=== PATIENT | male | born 1940 ===

== ENCOUNTER 2021-12-04 01:59 | Outpatient (CLI) | payer MEDICARE, SELFPAY ==
--- OUTSIDE RECORDS SUMMARY | 2021-12-04 02:04 | XMS_ITS | Clinical Summary ---
:1940 Author Organization [facility] [place] [address] Care Team Providers Name Role Phone Taylor Hazel MD Primary Care Provider [phone] Allergies No known active allergies Medications No known medications Active Problems Problem Noted Date Spinal stenosis 07/18/2015 Left leg pain 07/18/2015 Social History Tobacco Use Types Packs/Day Years Used Date Former Smoker Sex Assigned at Date Recorded Not on file Last Filed Vital Signs Vital Sign Reading Time Taken Comments Blood Pressure 147/84 07/18/2015 3:42 PM EDT R ARM Pulse 68 07/18/2015 3:42 PM EDT Temperature - - Respiratory Rate 18 07/18/2015 3:42 PM EDT Oxygen Saturation - - Inhaled Oxygen Concentration - - Weight 83.9 kg (185 lb) 07/18/2015 3:42 PM EDT Height 172.7 cm (5' 8) 07/18/2015 3:42 PM EDT Body Mass Index 28.13 07/18/2015 3:42 PM EDT Plan of Treatment Health Maintenance Due Date Last Done Comments Covid-19 Vaccine (#1) 11/01/1945 Tdap adult 11/01/1958 Tetanus vaccine 11/01/1958 Zoster vaccine (1 of 2) 11/01/1989 Advance Directive 11/01/1994 Pneumoccocal Vaccine: 65+ (1 - PCV) 11/01/2004 Influenza (Flu) vaccine (1 of 1 - Influenza standard 11/19/2021 series) Insurance Payer Benefit Plan / Subscriber ID Effective Dates Phone Addre ss Type Group MEDICARE MEDICARE PART [id number] 2004-Quoc [phone] [facility] [place] [phone] [facility] [id number] 2015-Quoc [phone] [address] [facility] [address] [place] [address] Care Teams Packager Or Packer And Weigher Relationship Specialty Start Date End Date Taylor Hazel MD PCP - General Family Medicine 07/18/15
--- OUTSIDE RECORDS SUMMARY | 2021-12-04 02:04 | XMS_ITS | Clinical Summary ---
:1940 Author Organization [facility] Address [address] [place] [address] Care Team Providers Name Role Phone Taylor Hazel MD Primary Care Provider [phone] Allergies No known active allergies Medications Medication Sig Dispensed Refills Start Date End Date Status sertraline (ZOLOFT) 50 Take 50 mg by 0 Active mg tablet mouth daily. docosahexaenoic acid/epa Take by mouth 0 Active (FISH OIL ORAL) daily. MULTIVITAMIN ORAL Take by mouth 0 Active daily. IBUPROFEN ORAL Take by mouth 0 A ctive daily. erythromycin (ROMYCIN) 5 Apply small 1 Tube 1 06/03/2020 Active mg/gram (0.5 %) amount to outer ophthalmic ointment corner of both eyelids and 1/4 inch strip in the right eye 3 times daily for 1 week Additional Information Patient not taking. Reported on 07/18/2020 Active Problems No known active problems Surgical History Surgery Date Site/Laterality Comments CATARACT REMOVAL WITH IMPLANT Bilateral INTRAOCULAR LENS PROSTHESIS INSERTION Bilateral LASIK Bilateral CATARACT REMOVAL Bilateral Medical History Medical History Date Comments Other states following surgery of eye and adnexa bilateral cataract Family History Medical History Relation Name Comments Macular Degeneration Sister Blindness Neg Hx Cataract Neg Hx Glaucoma Neg Hx Keratoconus Neg Hx Retinal Detachment Neg Hx Retinitis Pigmentosa Neg Hx Relation Name Status Comments Sister Social History Tobacco Use Types Packs/Day Years Used Date Former Smoker Smokeless Tobacco: Never Used Alcohol Use Standard Drinks/Week Comments Yes 0 (1 standard drink = 0.6 oz pure alcoho l) Sex Assigned at Date Recorded Not on file Last Filed Vital Signs Vital Sign Reading Time Taken Comments Blood Pressure 189/92 06/03/2020 0930 EDT Pulse 58 06/03/2020 0930 EDT Temperature - - Respiratory Rate - - Oxygen Saturation 97% 06/03/2020 0930 EDT Inhaled Oxygen Concentration - - Weight - - Height - - Body Mass Index - - Plan of Treatment Health Maintenance Due Date Last Done Comments COVID-19 Vaccine (1) 11/01/1944 Fall Risk Screening 11/01/2004 Insurance Payer Benefit Plan Subscriber ID Effective Phone Address Typ e / Group Dates [facility] [id number] 2020-Pres [phone] [employer] MEDICARE [employer]-M[employer] ent [phone] [place] [address] [facility] [id number] 2020-Pres [phone] ed[address] MEDICARE HEALTH-MCR ent [phone] [place] [address] Roberto Tyler Personal/Family Self 1940 [address] (Home) [place] [address] Roberto Tyler Personal/Family Self 1940 [address]Home) [place] [address] Roberto Tyler Personal/Family Self 1940 [address]Home) [place] [address] Roberto Tyler Personal/Family Self 1940 [address]) [place] [address] Roberto Tyler Personal/Family Self 1940 [address] [place] [address] Roberto Tyler Personal/Family Self 1940 [address] (Home) [place] [address] Roberto Tyler Personal/Family Self 1940 [address]Home) [place] [address] Care Teams High Speed Printer Operator Relationship Specialty Start Date End Date Taylor Hazel MD PCP - General 02/19/[address],[place] [address]
--- OUTSIDE RECORDS SUMMARY | 2021-12-04 02:04 | XMS_ITS | Encounter Summary ---
:1940 Author Organization [facility] Address [address] [place] [address] Care Team Providers Name Role Phone Taylor Hazel MD Primary Care Provider [phone] Encounter Details Date Type Department Care Team Description 07/03/2021 Lab Requisition [facility] Ilir, Basal cell carcinoma Pathology & Taylor Solares MD of skin, unspecified Laboratory Medicine [address] [place] [address] Social History Tobacco Use Types Packs/Day Years Used Date Former Smoker Smokeless Tobacco: Never Used Alcohol Use Standard Drinks/Week Comments Yes 0 (1 standard drink = 0.6 oz pure alcoho l) Sex Assigned at Date Recorded Not on file documented as of this encounter Plan of Treatment Not on filedocumented as of this encounter Procedures Procedure Name Priority Date/Time Associated Diagnosis Comme nts SURGICAL PATHOLOGY Today 07/03/2021 9:15 EDT Basal cell carc inoma Results for this of skin, unspecified procedu re are in the results section. documented in this encounter Results SURGICAL PATHOLOGY (07/03/2021 9:15 EDT) Note to Patient The following [facility] pathology results CENTER have been interpreted LABORATORY by your pathologist SERVICES and may be available to you before your health provider has had the opportunity to review them. Please allow time for your provider to receive these results and explore management options, if applicable. Final Diagnosis A. SKIN OF ARM, RIGHT UPPER, EXCISION: [facility] - Epidermal reparative change and dermal scar, c onsistent with biopsy site. CENTER - No residual basal cell carcinoma identified. LABORATORY SERVICES Attestation By the signature [facility] Electronica lly below, the attending CENTER signed by Herbert, physician certifies LABORATORY Katty Allen MD on that they have 1) SERVICES 07/07/2021 at 1231 personally conducted a gross and/or microscopic examination of the described specimen(s), and/or personally interpreted the results of laboratory testing of the described specimen(s), and 2) personally rendered or confirmed the above diagnosis. Microscopic The epidermis shows [facility] Description reparative changes CENTER with effacement of LABORATORY the rete ridge SERVICES pattern. The underlying dermis has fibrosis with fibroblasts and collagen bundles oriented parallel to the epidermis. There is a reactive vascular pattern. Clinical History Basal cell carcinoma; [facility] clinical diagnosis CENTER code: C44.91 LABORATORY SERVICES Gross Description A. [facility] Received in formalin ewa d with proper patient identification (initials B, S) and right upper arm is an unoriented ellipse excision of pale briggs-white wrinkled skin (1.7 x 0.8 cm and is excised to a CENTER depth of 0.3 cm). There is an off center white prior biopsy site (0.8 x 0.4 by less than 0.1 cm). The margins are inked blue. The specimen is serially sectioned and entirely submitted as two tips, reverse en face in A1 and central sections in A2-A3. LABORATORY SERVICES Cam Mathias 07/06/2021 9:07 Performing Lab [facility] LABORATORY SERVICES Scanned Images [facility] LABORATORY SERVICES Specimen Tissue - Skin (tissue) specimen (specime n) Performing Organization Address City/State/ZIP Code Phon e Number [facility]OR[facility]ORY [address] [place] [address] SERVICES documented in this encounter Visit Diagnoses Diagnosis Basal cell carcinoma of skin, unspecifie d documented in this encounter Care Teams Rotary Veneer Machine Operator Relationship Specialty Start Date End Date Taylor Hazel MD PCP - General 02/19/[address],[place] [address] documented as of this encounter
--- OUTSIDE RECORDS SUMMARY | 2021-12-04 02:04 | XMS_ITS | Encounter Summary ---
:1940 [place] [address] Care Team Providers Name Role Phone Cas ADAMSON MD, Gigi Larson Primary Care Provider Encounter Details Date Type Department Care Team Description 07/08/2015 Orders Only Vascular Surgery at [facility], JUAQUIN Ross Left leg pain [address] [address] VASCULAR SURGERY [phone] [place] [phone] (Wo rk) Social History Tobacco Use Types Packs/Day Years Used Date Never Assessed Sex Assigned at Date Recorded Not on file documented as of this encounter Plan of Treatment Not on filedocumented as of this encounter Results SONYA, legs, multiple levels (07/18/2015 2:50 PM EDT) Component Value Ref Test Analysis Performed At [facility] Range Method Time Signature VB Text Department: Vascular Surgery Lab [facility] Report Patient: [id number] (LUIS TYLER) CPT: 24555 ICD10: M79.605 Referring Physician: NORIS GUZMAN ?? Indications: c/o left leg pain (random), pain is worse at re st; ? arterial disease Diabetes mellitus: No ICD10 Diagnosis Code: M79.605 Findings: Right ?Pressure (mm Hg) ?? SONYA ??Waveform ?? Brachial Artery ?161 ? Common Femoral Artery ?Triphasic ?? Pop Fossa ?Triphasic ?? Dorsalis Pedis (Ankle) Arter y ?173 ? 1.07 ??Triphasic ?? Posterior Tibial (Ankle) Artery ??177 ? 1.10 ??Triphasic ?? Left ? Pressure (mm Hg) ?? SONYA ??Waveform ?? Brachial Artery ?152 ? Common Femoral Artery ?Triphasic ?? Pop Fossa ?Triphasic ?? Dorsalis Pedis (Ankle) Arter y ?157 ? 0.98 ??Triphasic ?? Posterior Tibial (Ankle) Artery ??166 ? 1.03 ??Triphasic ?? Interpretation: RIGHT: No significant lower extremity arterial o cclusive disease identifiable at rest. Normal ankle/brachial pressure ratios and ankle D oppler waveforms. LEFT: No significant lower e xtremity arterial occlusive disease identifiable at rest. Normal ankle/brachial pressure ratios and ankle Dopple r waveforms. Comparison: ??No previous study in our vascular lab da tabase for comparison. Electronically Signed by: STEVE HAN on 2015-07-18 04:39 :59 PM VB Text End of Report [facility] Report Specimen (Source) Anatomical Collection Method Collection Time Re ceived Time Location / / Volume Laterality 07/18/2015 2:50 PM EDT Noris Guzman MD VASCULAR ORDERABLES Performing Organization Address City/State/ZIP Code Phon e Number [facility] documented in this encounter Visit Diagnoses Diagnosis Left leg pain Pain in limb documented in this encounter Care Teams Director Of In Service Education Relationship Specialty Start Date End Date Gigi Cardozo II, MD PCP - General 02/10/10 07/17/15 [address] [place] [address] documented as of this encounter
--- OUTSIDE RECORDS SUMMARY | 2021-12-04 02:04 | XMS_ITS | Encounter Summary ---
:1940 [place] [address] Care Team Providers Name Role Phone Taylor Hazel MD Primary Care Provider [phone] Reason for Visit Reason Comments Other My leg hurts Encounter Details Date Type Department Care Team Description 07/18/2015 Office Visit Vascular Surgery at [facility] Catalina Ferreira PA Left leg pain [address] [address] VASCULAR SURGERY [phone] [place], [place] [address] (Wo rk) Social History Tobacco Use Types Packs/Day Years Used Date Former Smoker Sex Assigned at Date Recorded Not on file documented as of this encounter Last Filed Vital Signs Vital Sign Reading [...] Mass Index 28.13 07/18/2015 3:42 PM EDT documented in this encounter Patient Instructions Patient InstructionsCatalina Ferreira PA - 07/18/2015 5:34 PM EDT There was no evidence of arterial disease on your exam or your SONYA testing today to account for yoursymptoms. I have recommended follow up with your PCP to review your MRI and consider reevaluation with your spinal surgeon. We can see you on an as needed basis. Please do not hesitate to call with questions/concerns. documented in this encounter Progress Notes Catalina Ferreira PA - 07/18/2015 5:27 PM EDT This is a new patient to the practice who is being evaluated for left leg pain and was referred by TAYLOR HAZEL MD. Mr. Tyler has a history of spinal stenosis and had a back surgery about a year and a half ago in [place] by Dr. Diaz. Since that time he has developed recurrent symptoms in his left leg that he feels are related to his back and nerves but his PCP requested evaluation of his arterial circulation. He didhave a recent MRI of his spine and is waiting to hear the results as well. He complains of pain in his left hip, groin, lateral thigh, anterolateral lower leg, and dorsal footwhich comes and goes and he is unable to specify an activity or position that will always provoke or relieve the pain but this does seem to be worse when laying flat at night. He reports the pain shoots into the leg or is sometimes like an electrical shock but is also causing some aching or soreness of the leg at times. He has been unable to relieve this with positional changes when it occurs. He has been able to continue to walk about 5 miles several times per week as well without needing to stop to rest and has no complaints consistent with arterial rest pain. PMHx: Spinal stenosis PSxHx: Past Surgical History Procedure Laterality Date ??? Spine surgery for spinal stenosis - Dr. Diaz, [place] [facility] Family Hx: No family history on file. Social Hx: History Substance Use Topics ??? Smoking status: Former Smoker ??? Smokeless tobacco: Not on file ??? Alcohol Use: Not on file Medications: None Allergies: No Known Allergies Review of Systems: Constitutional (weight change, fever) - Denies Neuro (dizziness, seizures, numbness, tingling) - Denies Eyes (vision) - Denies Ears, nose, throat (hearing) - Denies Cardiovascular (CP) - Denies Respiratory (SOB) - Denies GI (abd pain, nausea, emesis, blood in stool) - Denies (hematuria, dysuria, frequency) - Denies Muscoloskeletal (extremity pain, weakness) - as per HPI Skin (ulcers, rashes) - Denies All other ROS negative Physical Exam: Vitals: Filed Vitals: 07/18/15 1542 BP: 147/84 Pulse: 68 Resp: 18 Gen: No acute distress. HEENT: Normocephalic, atraumatic. PERR, EOMs intact bilaterally. No scleral icterus. Normal dentition Neck: Supple, no JVD. Heart: Regular rate and rhythm. (+) S1/S2. No snaps, clicks, rubs, or murmurs. No lifts/heaves Lungs: Regular respiratory rate with no increased work of breathing. Clear to auscultation bilaterally. Abd: Soft, nontender, not distended. Audible bowel sounds. No bruits or pulsatile mass on exam. No hepato/splenomegaly. Aortic pulsation within normal limits. Vascular Exam: R L Carotid 2/2 bruit (-) 2/2 bruit (-) Radial 2/2 2/2 Femoral 2/2 2/2 Popliteal 2/2 2/2 DP 2/2 2/2 PT 2/2 2/2 No edema or varicosities bilateral lower extremities <3 sec cap refill bilateral feet Skin: warm, pink. Digits/Nails: No evidence of clubbing, cyanosis, ischemia, or tissue loss. Musculoskeletal: Gait - stable, no notable motor sensory deficits on gross examination. Psych: AAOx3, mood/affect congruent Labs/Studies: ABIs: 07/18/15 Right ?Pressure (mm Hg) ?? SONYA ??Waveform ?? Brachial Artery ?161 ? Common Femoral Artery ?Triphasic ?? Pop Fossa ?Triphasic ?? Dorsalis Pedis (Ankle) Artery ?173 ? 1.07 ??Triphasic ?? Posterior Tibial (Ankle) Artery ??177 ? 1.10 ??Triphasic ?? Left ? Pressure (mm Hg) ?? SONYA ??Waveform ?? Brachial Artery ?152 ? Common Femoral Artery ?Triphasic ?? Pop Fossa ? Triphasic ?? Dorsalis Pedis (Ankle) Artery ?157 ? 0.98 ??Triphasic ?? Posterior Tibial (Ankle) Artery ??166 ? 1.03 ??Triphasic ?? Impression: Left leg pain with history spinal stenosis Recommendations: There is no evidence of arterial disease on exam or his ABIs today to account for his symptoms. I have recommended follow up with his PCP to review his MRI and consider reevaluation with his spinal surgeon. We can see him on an as needed basis. documented in this encounter Plan of Treatment Not on filedocumented as of this encounter Visit Diagnoses Diagnosis Left leg pain Pain in limb documented in this encounter Care Teams Lehr Attendant Relationship Specialty Start Date End Date Taylor Hazel MD PCP - General Family Medicine 07/18/15 documented as of this encounter
--- OUTSIDE RECORDS SUMMARY | 2021-12-04 02:05 | XMS_ITS | Encounter Summary ---
:1940 Author Organization [facility] Address [address] [place] [address] Care Team Providers Name Role Phone Taylor Hazel MD Primary Care Provider [phone] Encounter Details Date Type Department Care Team Description 06/03/2021 Lab Requisition [facility] Trina Hazel er of the skin Pathology & Taylor Solares MD and subcutaneous Laboratory Medicine [address], unspecified - [facility] [address] [place] [address] Social History Tobacco Use Types Packs/Day Years [...] Associated Diagnosis Comme nts SURGICAL PATHOLOGY Today 06/02/2021 9:00 Disorder of the ski n Results for this EDT and subcutaneous procedure a re in tissue, unspecified the resu lts section. documented in this encounter Results SURGICAL PATHOLOGY (06/02/2021 9:00 EDT) Note to Patient The following [facility] pathology results CENTER have been interpreted LABORATORY by your pathologist SERVICES and may be available to you before your health provider has had the opportunity to review them. Please allow time for your provider to receive these results and explore management options, if applicable. Final Diagnosis A. SKIN OF ARM, RIGHT UPPER, SHAVE BIOPSY: [facility] - Basal cell carcinoma, nodular type. [facility] TER - Basal cell carcinoma present at deep tissue edge. LABORATORY SERVICES Attestation By the signature [facility] Electronica lly below, the attending CENTER signed by Herbert, physician certifies LABORATORY Katty Allen MD on that they have 1) SERVICES 06/04/2021 at 0953 personally conducted a gross and/or microscopic examination of the described specimen(s), and/or personally interpreted the results of laboratory testing of the described specimen(s), and 2) personally rendered or confirmed the above diagnosis. Microscopic Irregularly shaped [facility] Description islands of atypical CENTER basal cells LABORATORY infiltrate the SERVICES dermis. The basal cells have scant cytoplasm and round dark nuclei. Mitotic figures and apoptotic bodies are evident. The nuclei at the periphery of the islands have a palisaded arrangement. The islands are associated with a fibromyxoid stroma and there is cleft formation between some of the islands and stroma. Clinical History Clinical diagnosis [facility] code: L98.9 CENTER LABORATORY SERVICES Gross Description A. [facility] Received in formalin ewa d with proper patient identification (initials B, S) and right upper arm is a shave biopsy of a pearly briggs-pink firm papule measuring 1.0 x 0.8 x 0.3 cm. Inked, trisected and submitted entirely in A1. [facility] JUAQUIN HUGGINS(ASCP) 06/03/2021 18:12 SERVICES Performing Lab [facility] LABORATORY SERVICES Scanned Images [facility] LABORAT[facility] SERVICES Specimen Tissue - Skin (tissue) specimen (specime n) Performing Organization Address City/State/ZIP Code Phon e Number [facility] [address] [place] [address] SERVICES documented in this encounter Visit Diagnoses Diagnosis Disorder of the skin and subcutaneous ti ssue, unspecified documented in this encounter Care Teams Interlibrary Loan Services Librarian Relationship Specialty Start Date End Date Taylor Hazel MD PCP - General 02/19/[address],[place] [address] documented as of this encounter
--- OUTSIDE RECORDS SUMMARY | 2021-12-04 02:05 | XMS_ITS | Encounter Summary ---
:1940 Author Organization [facility] Address [address] [place] [address] Care Team Providers Name Role Phone Taylor Hazel MD Primary Care Provider [phone] Reason for Visit Reason Comments Post-OP Follow Up Encounter Details Date Type Department Care Team Description 06/09/2020 Office Visit [facility] Selma Kulkarni MD Ophthalmology - [address], [address] [place] [address] [place] [phone] [id number] (Wo rk) Social History Tobacco Use Types Packs/Day Years Used Date Former Smoker Smokeless Tobacco: Never Used Alcohol Use Standard Drinks/Week Comments Yes 0 (1 standard drink = 0.6 oz pure alcoho l) Sex Assigned at Date Recorded Not on file documented as of this encounter Progress Notes Leonila Kulkarni MD - 06/09/2020 1430 EDT Chief Complaint Patient presents with ??? Post-OP Follow Up Comments Ectropion repair, both lower eyelids and Conjunctival biopsy, right on 06/03/20. C/o eyes are sore, burning and tearing worse in the evenings. Hurts/tender dull pain in the forehead when moves eyes left to right, although he says his eyes are feeling better. He has not used Ats, he is using Emycin ointment TID on eyelids. HPI The patient is a 79 y.o. male seen today for a 1 week s/p Ectropion repair, both lower eyelids and Conjunctival biopsy, right on 06/03/20. C/o eyes are sore, burning and tearing worse in the evenings. Hurts/tender dull pain in the forehead when moves eyes left to right, although he says his eyes are feeling better. He has not used Ats, he is using Emycin ointment TID on eyelids. ROS Constitutional: ENT/Mouth Cardiovascular: NL Respiratory: Gastrointestinal: Genitourinary: Musculoskeletal: (arthritis) Integumentary: Neurologic: Psychiatric: Depression Endocrine: NL Hematologic: Immunologic: NL Surveillance Director: Exposures: Other: Attestation: Allergies include: Patient has no known allergies. There is no problem list on file for this patient. Outpatient Medications Marked as Taking for the 06/09/20 encounter (Office Visit) with Leonila Kulkarni MD Medication Sig ??? docosahexaenoic acid/epa (FISH OIL ORAL) Take by mouth daily. ??? erythromycin (ROMYCIN) 5 mg/gram (0.5 %) ophthalmic ointment Apply small amount to outer corner of both eyelids and 1/4 inch strip in the right eye 3 times daily for 1 week ??? IBUPROFEN ORAL Take by mouth daily. ??? MULTIVITAMIN ORAL Take by mouth daily. ??? sertraline (ZOLOFT) 50 mg tablet Take 50 mg by mouth daily. Base Eye Exam Visual Acuity (Snellen - Linear) Right Left Dist cc 20/50 -2 20/30 -1 Dist ph cc 20/40 NI Correction: Glasses Tonometry (Applanation, 14:33) Right Left Pressure 15 15 Neuro/Psych Oriented x3: Yes Mood/Affect: Normal Slit Lamp and Fundus Exam External Exam Right Left External mild periorbital edema, LL in good position mild periorbital edema, LL in good position Slit Lamp Exam Right Left Lids/Lashes LL in good position, incision C/DI LL in good position, incision C/D/I Conjunctiva/Sclera 2+ conj hyperemia, conj incision intact 2+ conj hyperemia Cornea Clear paracentral cornea scar Anterior Chamber Deep and quiet Deep and quiet Iris Round and reactive Round and reactive Refraction Wearing Rx Type: Bifocal DIAGNOSTIC TESTS: IMPRESSION & PLAN: Encounter Diagnoses Name Primary? Senile ectropion of both lower eyelids Yes ??? Conjunctivochalasis of both eyes 1. Senile ectropion of both lower eyelids POW#1 s/p bilateral LL ectropion repair. LL in good position. Continue ointment for 3 more days Follow up in 1 month 2. Conjunctivochalasis of both eyes S/p excision on the right. Path c/w reactive inflammation. I have reviewed the patient's past medical, family, social and surgical history. I have also reviewed the patient's medications, allergies, and problem list. I performed my own HPI and have reviewed the tech's ROS as well. I personally completed this exam myself. Leonila Kulkarni MD I am scribing for Leonila Kulkarni MD while she personally performs the service. Radha Carrasco, ARLINE, 06/09/2020, 16:01 The patient was instructed to call our office or go to emergency room if worse vision, worse symptoms, or new/other concerns arise. documented in this encounter Plan of Treatment Not on filedocumented as of this encounter Visit Diagnoses Diagnosis Senile ectropion of both lower eyelids - Primary Conjunctivochalasis of both eyes Conjunctivochalasis documented in this encounter Eye Exam Visual Acuity (Snellen - Linear) Right eye Left eye Dist cc 20/50 -2 20/30 -1 Dist ph cc 20/40 NI Correction: Glasses Tonometry (Applanation, 14:33) Right eye Left eye Pressure 15 15 Neuro/Psych Oriented x3: Yes Mood/Affect: Normal External Exam Right eye Left eye External mild periorbital edema, LL in good mild periorbital edema, LL in good position position Slit Lamp Exam Right eye Left eye Lids/Lashes LL in good position, incision LL in good position, incision C/DI C/D/I Conjunctiva/Sclera 2+ conj hyperemia, conj incision 2+ conj hyperemia intact Cornea Clear paracentral cornea s car Anterior Chamber Deep and quiet Deep and quiet Iris Round and reactive Round and reactive Wearing Rx Type: Bifocal Care Teams Photographer Apprentice Relationship Specialty Start Date End Date Taylor Hazel MD PCP - General 02/19/[address],[place] [address] documented as of this encounter
--- OUTSIDE RECORDS SUMMARY | 2021-12-04 02:05 | XMS_ITS | Encounter Summary ---
:1940 Author Organization [facility] Address [address] [place] [id number] Care Team Providers Name Role Phone Taylor Hazel MD Primary Care Provider [phone] Reason for Visit Reason Comments Follow-up Encounter Details Date Type Department Care Team Description 05/15/2020 Office Visit [facility] Selma Kulkarni MD Ophthalmology - [address], [address], [address] [place] [address] [place], [place] [phone] [id number] (Wo rk) Social History Tobacco Use Types Packs/Day Years Used Date Former Smoker Smokeless Tobacco: Never Used Alcohol Use Standard Drinks/Week Comments Yes 0 (1 standard drink = 0.6 oz pure alcoho l) Sex Assigned at Date Recorded Not on file documented as of this encounter Progress Notes Leonila Kulkarni MD - 05/15/2020 1030 EST Chief Complaint Patient presents with ??? Follow-up Comments Pt referred by Dr. Benitez for bilateral epiphora. Patient has been using Lid scrubs daily. Patient states both eyes are bothersome due to pretty constant tearing with some overflow tearing that gets worse when he goes outside or it is windy. No discharge. No crusting. Occasional sharp pains in the mornings both eyes. Occasional redness both eyes. No flashes. No floaters. No current use of eye drops. Patient states he has tried a lot of different drops and an oral medication (unsure of the name) the first time it helped his eyes, the second time it did not. Hx of lasik both eyes and cataract surgeryboth eyes. No previous eye or facial injuries. HPI The patient is a 79 y.o. male here for follow up for bilateral epiphoria. Pt reports constant overflow tearing. At his last visit because of the appearance of upper eyelid retraction and conjunctival chalasis thyroid function testing was ordered as well as TSI and these were normal. He has tried topical steroids in the past with some improvement during the first course but a lack of improvement with subsequent courses. ROS Constitutional: ENT/Mouth Cardiovascular: NL Respiratory: Gastrointestinal: Genitourinary: Musculoskeletal: (arthritis) Integumentary: Neurologic: Psychiatric: Depression Endocrine: NL Hematologic: Immunologic: NL Portable Trackman: Exposures: Other: Attestation: Allergies include: Patient has no known allergies. There is no problem list on file for this patient. Outpatient Medications Marked as Taking for the 05/15/20 encounter (Office Visit) with Leonila Kulkarni MD Medication Sig ??? docosahexaenoic acid/epa (FISH OIL ORAL) Take by mouth daily. ??? IBUPROFEN ORAL Take by mouth daily. ??? MULTIVITAMIN ORAL Take by mouth daily. ??? sertraline (ZOLOFT) 50 mg tablet Take 50 mg by mouth daily. Base Eye Exam Visual Acuity (Snellen - Linear) Right Left Dist cc 20/20 -2 20/25 +2 Correction: Glasses Tonometry (Applanation, 10:48) Right Left Pressure 14 13 Pupils Pupils Dark Light Shape React APD Right PERRL 5 2 Round Brisk None Left PERRL 5 2 Round Brisk None Extraocular Movement Right Left Full, Ortho Full, Ortho Neuro/Psych Oriented x3: Yes Mood/Affect: Normal Slit Lamp and Fundus Exam External Exam Right Left External Normal Normal Slit Lamp Exam Right Left Lids/Lashes lid lag, UL retraction with the lid at the limbus, LL laxity mild laxity Conjunctiva/Sclera chalasis trace conj hyperemia Cornea LASIK flap paracentral scar at 3 o/c, LASIK flap Anterior Chamber Deep and quiet Deep and quiet Iris Normal Normal Lens Posterior chamber intraocular lens Posterior chamber intraocular lens Fundus Exam Right Left Disc Normal Normal C/D Ratio 0.2 0.2 Macula ERM ERM DIAGNOSTIC TESTS: IMPRESSION & PLAN: Encounter Diagnoses Name Primary? Senile ectropion of both lower eyelids Yes ??? Conjunctivochalasis of both eyes ??? Bilateral epiphora ??? Lid retraction of right eye 1. Senile ectropion of both lower eyelids Discussed the meaning of this diagnosis and that is likely contributing to his bilateral epiphora. Discussed the possibility of ectropion repair with lateral tarsal strip. Discussed risk benefits and alternatives. The patient would like to proceed. We will plan for this in the procedure room in the near future 2. Conjunctivochalasis of both eyes He has significant pink conjunctiva chalasis in the right eye which is also contributing to his epiphora would recommend that we treat this at the time of ectropion repair. 3. Bilateral epiphora Multifactorial as above I have reviewed the patient's past medical, family, social and surgical history. I have also reviewed the patient's medications, allergies, and problem list. I performed my own HPI and have reviewed the tech's ROS as well. I personally completed this exam myself. Leonila Kulkarni MD I am scribing for Leonila Kulkarni MD, while she is personally performing the service. ARLINE Calvo, 05/15/2020 17:12 The patient was instructed to call our office or go to emergency room if worse vision, worse symptoms, or new/other concerns arise. documented in this encounter Plan of Treatment Not on filedocumented as of this encounter Visit Diagnoses Diagnosis Senile ectropion of both lower eyelids - Primary Conjunctivochalasis of both eyes Conjunctivochalasis Bilateral epiphora Epiphora, unspecified as to cause Lid retraction of right eye documented in this encounter Eye Exam Visual Acuity (Snellen - Linear) Right eye Left eye Dist cc 20/20 -2 20/25 +2 Correction: Glasses Tonometry (Applanation, 10:48) Right eye Left eye Pressure 14 13 Pupils Pupils Dark Light Shape React APD Right eye PERRL 5 2 Round Brisk None Left eye PERRL 5 2 Round Brisk None Extraocular Movement Right eye Left eye Full, Ortho Full, Ortho Neuro/Psych Oriented x3: Yes Mood/Affect: Normal External Exam Right eye Left eye External Normal Normal Slit Lamp Exam Right eye Left eye Lids/Lashes lid lag, UL retraction with the mild lax ity lid at the limbus, LL laxity Conjunctiva/Sclera chalasis trace conj hyperemia Cornea LASIK flap paracentral scar at 3 o/c, LASIK flap Anterior Chamber Deep and quiet Deep and quiet Iris Normal Normal Lens Posterior chamber intraocular Posterior chamber intraocular lens lens Fundus Exam Right eye Left eye Disc Normal Normal C/D Ratio 0.2 0.2 Macula ERM ERM Care Teams Human Resources Designate Relationship Specialty Start Date End Date Taylor Hazel MD PCP - General 02/19/[address] [address] documented as of this encounter
--- OUTSIDE RECORDS SUMMARY | 2021-12-04 02:05 | XMS_ITS | Encounter Summary ---
:1940 Author Organization [facility] Address [address] [place] [address] Care Team Providers Name Role Phone Taylor Hazel MD Primary Care Provider [phone] Reason for Visit Reason Comments Post-OP Follow Up Encounter Details Date Type Department Care Team Description 07/18/2020 Post-op Visit [facility] Leonila Kulkarni Sen ile ectropion of Ophthalmology - Main both lower eyelids [address] (Primary Dx) [address] [place], [place] [address] [place] [address] [facility] [address] [place] [address] (Wo rk) Social History Tobacco Use Types Packs/Day Years Used Date Former Smoker Smokeless Tobacco: Never Used Alcohol Use Standard Drinks/Week Comments Yes 0 (1 standard drink = 0.6 oz pure alcoho l) Sex Assigned at Date Recorded Not on file documented as of this encounter Progress Notes Leonila Kulkarni MD - 07/18/2020 0845 EDT Chief Complaint Patient presents with ??? Post-OP Follow Up Comments 1 month follow up for s/p bilateral LL ectropion repair for Senile ectropion and Conjunctival biopsy, right on 06/03/20. Finished castillo, only using AT's prn. Decrease in tearing and discharge. No eye pain. Slight irritation at times. Vision only blurred when tearing. HPI The patient is a 79 y.o. male 1 month follow up for s/p bilateral LL ectropion repair for Senile ectropion and Conjunctival biopsy, right on 06/03/20. Finished castillo, only using AT's prn for dry eyes. Decrease in tearing and discharge. No eye pain. ROS Constitutional: NL ENT/Mouth NL Cardiovascular: NL Respiratory: NL Gastrointestinal: NL Genitourinary: NL Musculoskeletal: NL Integumentary: NL Neurologic: NL Psychiatric: NL Endocrine: NL Hematologic: NL Immunologic: NL Busgirl: Exposures: None Other: Attestation: Allergies include: Patient has no known allergies. There is no problem list on file for this patient. Outpatient Medications Marked as Taking for the 07/18/20 encounter (Post-op Visit) with Leonila Kulkarni MD Medication Sig ??? docosahexaenoic acid/epa (FISH OIL ORAL) Take by mouth daily. ??? IBUPROFEN ORAL Take by mouth daily. ??? MULTIVITAMIN ORAL Take by mouth daily. ??? sertraline (ZOLOFT) 50 mg tablet Take 50 mg by mouth daily. Base Eye Exam Visual Acuity (Snellen - Linear) Right Left Dist cc 20/30 -2 20/30 -1 Correction: Glasses Tonometry (Applanation, 9:00) Right Left Pressure 15 18 Pupils Dark Light Right 2.5 2.5 Left 2.5 2.5 Neuro/Psych Oriented x3: Yes Mood/Affect: Normal DIAGNOSTIC TESTS: IMPRESSION & PLAN: Encounter Diagnosis Name Primary? Senile ectropion of both lower eyelids Yes 1. Senile ectropion of both lower eyelids POW#6 s/p ectropion repair with LTS and excision of conj chalasis. Doing well Symptomatically improved. Follow up for ongoing care with Dr. Benitez. Follow up with me prn. I have reviewed the patient's past medical, family, social and surgical history. I have also reviewed the patient's medications, allergies, and problem list. I performed my own HPI and have reviewed the tech's ROS as well. I personally completed this exam myself. Leonila Kulkarni MD I am scribing for Leonila Kulkarni MD, while she is personally performing the service. FAUSTINO Calvo, 07/18/2020 9:31 The patient was instructed to call our office or go to emergency room if worse vision, worse symptoms, or new/other concerns arise. documented in this encounter Plan of Treatment Not on filedocumented as of this encounter Visit Diagnoses Diagnosis Senile ectropion of both lower eyelids - Primary documented in this encounter Eye Exam Visual Acuity (Snellen - Linear) Right eye Left eye Dist cc 20/30 -2 20/30 -1 Correction: Glasses Tonometry (Applanation, 9:00) Right eye Left eye Pressure 15 18 Pupils Dark Light Right eye 2.5 2.5 Left eye 2.5 2.5 Neuro/Psych Oriented x3: Yes Mood/Affect: Normal External Exam Right eye Left eye External LL in good position LL in good position Slit Lamp Exam Right eye Left eye Lids/Lashes LL in good position LL in good position Conjunctiva/Sclera White and quiet White and quiet Cornea Clear Clear Anterior Chamber Deep and quiet Deep and quiet Iris Round and reactive Round and reactive Care Teams Line Tester Relationship Specialty Start Date End Date Taylor Hazel MD PCP - General 02/19/[address] [address] documented as of this encounter
--- OUTSIDE RECORDS SUMMARY | 2021-12-04 02:05 | XMS_ITS | Encounter Summary ---
:[address] [facility] Address [address] [place] [address] Care Team Providers Name Role Phone Taylor Hazel MD Primary Care Provider [phone] Encounter Details Date Type Department Care Team Description 02/29/2020 Travel Social History Tobacco Use Types Packs/Day Years Used Date Never Assessed Sex Assigned at Date Recorded Not on file COVID-19 Exposure Response Date Recorded In the last month, have you been in contact with No / Unsure 02/29/2020 10:54 EST someone who was confirmed or suspected to have Coronavirus / COVID-19? documented as of this encounter Plan of Treatment Not on filedocumented as of this encounter Visit Diagnoses Not on filedocumented in this encounter Care Teams Telecommunications Professional Relationship Specialty Start Date End Date Taylor Hazel MD PCP - General 02/19/[address] [address] documented as of this encounter
--- OUTSIDE RECORDS SUMMARY | 2021-12-04 02:05 | XMS_ITS | Encounter Summary ---
:1939 Author Organization [facility] Address [address] [place] [address] Care Team Providers Name Role Phone Taylor Hazel MD Primary Care Provider [phone] Encounter Details Date Type Department Care Team Description 02/29/2020 Phlebotomy Only [facility] ED Center [address], Acc Bilate ral epiphora; Phlebotomy Phlebotomy Lid retraction of right eye [address] [place], [place] [address] Social History Tobacco Use Types Packs/Day Years [...] encounter Procedures Procedure Name Priority Date/Time Associated Comments Diagnosis THYROTROPIN RECEPTOR Routine 02/29/2020 11:00 Bilateral epiphora Results for this ANTIBODY EST Lid retraction of procedure are in right eye the results section. THYROID-STIMULATING Routine 02/29/2020 11:00 Bilateral e piphora Results for this IMMUNOGLOBULIN (TSI), EST Lid retraction of p rocedure are in SERUM right eye the results section. T3 FREE Routine 02/29/2020 11:00 Bilateral epiph ora Results for this EST Lid retraction of procedure are in right eye the results section. TSH Routine 02/29/2020 11:00 Bilateral epiph ora Results for this EST Lid retraction of procedure are in right eye the results section. T4 FREE Routine 02/29/2020 11:00 Lid retraction of Result s for this EST right eye procedure are in Bilateral epiphora the resul ts section. documented in this encounter Results T3 FREE (02/29/2020 11:00 EST) Pathologist Sig nature T3, Free 3.4 2.8 - 5.3 pg/mL [facility] SERVICES Specimen Blood - Venous blood (substance) Performing Organization Address [facility] Code Phon e Number [facility] [address] [phone] SERVICES THYROTROPIN RECEPTOR ANTIBODY (02/29/2020 11:00 EST) Thyrotropin <1.10 0.00 - 1.75 [facility] Receptor Ab, S Comment: IU/L LABORATORIES ADDITIONAL INFORMATION ------ At a decision limit of 1.75 IU/L, this assay has 97% sensitivity and 99% specificity for detection of Graves' disease. In healthy individuals and in patients with thyroid disease without diagnosis of Graves' disease, the upper limit of anti-TSHR values are 1.22 IU/L and 1.58 IU/L, respectively (97.5th percentiles). Test Performed by: [facility] [address] [place] [address] Beet End Supervisor: Olu Tran M.D. Ph.D.; CLIA# [id number] Specimen Blood - Venous blood (substance) Performing Organization Address [facility] Phon e Number [facility] [address] [place] [address] TSH (02/29/2020 11:00 EST) Pathologist Sig nature TSH 4.16 0.47 - 4.68 uIU/mL [facility] SERVICES Specimen Blood - Venous blood (substance) Narrative [facility] - 02/29/2020 12:48 EST The results of this assay can be falsely lowered due to the consumption of Biotin. Performing Organization Address City/State/ZIP Code Phon e Number [facility] [address] [phone] SERVICES T4 FREE (02/29/2020 11:00 EST) Pathologist Sig nature T4, Free 0.9 0.8 - 2.2 ng/dL [facility] Specimen Blood - Venous blood (substance) Performing Organization Address City/[facility]/ZIP Code Phon e Number [facility] [address] [place] [address] SERVICES THYROID-STIMULATING IMMUNOGLOBULIN (TSI), SERUM (02/29/2020 11:00 EST) Thyroid-Stimulati <1.0 <=1.3 TSI [facility] ng Immunoglobin, Comment: index LABORATORIES S Test Performed by: [facility] [address] [place] [address] Beet End Supervisor: Olu Tran M.D. Ph.D.; CLIA# [id number] Specimen Blood - Venous blood (substance) Performing Organization Address City/State/ZIP Code Phon e Number [facility] [address] [place] [address] documented in this encounter Visit Diagnoses Diagnosis Bilateral epiphora Epiphora, unspecified as to cause Lid retraction of right eye documented in this encounter Care Teams Mobile Application Tester Relationship Specialty Start Date End Date Taylor Hazel MD PCP - General 02/19/[address],[place] [address] documented as of this encounter
--- OUTSIDE RECORDS SUMMARY | 2021-12-04 02:05 | XMS_ITS | Encounter Summary ---
:1940 Author Organization [facility] Address [address] [place] [address] Care Team Providers Name Role Phone Taylor Hazel MD Primary Care Provider [phone] Reason for Visit Reason Comments Procedure Encounter Details Date Type Department Care Team Description 06/03/2020 Office Visit [facility] Selma Kulkarni MD Ophthalmology - [address], [address], [address] [place] [address] [place], [place] [phone] [id number] (Wo rk) Social History Tobacco Use [...] - - Body Mass Index - - documented in this encounter Patient Instructions Patient InstructionsLeonila Kulkarni MD - 06/03/2020 9:30 EDT - You may shower after 24 hours and get incisions wet (wash face like usual) - For 3 days, no heavy lifting or heavy activity including running; no bending below the waist. - No eye rubbing - Use prescribed ointment on wounds over outer corner of both eyelids and and in the right eye 3 times daily for 1 week - Use ice over the wounds for 15 minutes of every 1-2 hours you are awake for the first 48 hours. - Take Tylenol 650mg by mouth every 4-6 hours as needed for pain control (not to exceed a total of 4000mg in 24 hours) - Follow up in 7-[address] Kulkarni (if unsure of appointment time, call [phone]) - If you have decreasing vision, uncontrollable pain, or significant bleeding call [phone] Kulkarni documented in this encounter Ordered Prescriptions Prescription Sig Dispensed Refills Start Date End Date erythromycin (ROMYCIN) 5 Apply small amount to 1 Tube 1 06/03/2020 mg/gram (0.5 %) ophthalmic outer corner of both ointment eyelids and 1/4 inch strip in the right eye 3 times daily for 1 week documented in this encounter Procedure Notes Leonila Kulkarni MD - 06/03/2020 0930 EDT Title of procedure: Ectropion repair, both lower eyelids Conjunctival biopsy, right Pre-operative diagnosis: ectropion, both lower eyelid Conjunctivochalasis, right Post-operative diagnosis: same Surgeon: Leonila Kulkarni MD Anesthesia: 2% lidocaine with 1:100,000 epinephrine Specimen: conjunctiva submitted fresh to pathology prep: betadine swab Narrative: Informed consent was obtained prior to the procedure. The operative site was identified and marked. The patient was positioned. Operative site was prepped with betadine. Lidocaine jelly was placed on the right eye 2% lidocaine with 1:100,000 epinephrine was injected transconjunctivally at the area of the lateral canthus on both sides and across the anterior lamella of the lateral portion of the lowerlid. A lid speculum was placed and the conjunctiva was biopsied with forceps and bob scissors and submitted to pathology fresh. The conj was closed with interrupted 7-0 chromic suture. Attention was then turned to the lower eyelid. Fragoso scissors were used to incise the right lateral canthus and do an inferior cantholysis. Bipolar cautery was used to achieve hemostasis. An 8 mm tarsal strip created by removing lid margin, anterior lamella, and cauterizing conjunctiva. Excess skin was excised from the right lateral lower eyelid. Double-armed 4.0 mersilene was passed with both arms posterior to anterior through tarsus; both needles were passed through periosteum of medial surface of lateral orbital rim. The lateral commissure was re-formed using 6.0 vicryl horizontal stitch buried laterally to staurt lines. 7-0 chromic suture was used to close the skin at the lateral can thus. An identical procedure was carried out on both lower eyelids. documented in this encounter Plan of Treatment Not on filedocumented as of this encounter Procedures Procedure Name Priority Date/Time Associated Diagnosis Comme nts SURGICAL Routine 06/03/2020 10:45 Conjunctivochalasis of R esults for this PATHOLOGY EDT both eyes procedure are i n the results section. documented in this encounter Results SURGICAL PATHOLOGY (06/03/2020 10:45 EDT) Final Diagnosis A. CONJUNCTIVA, RIGHT, BIOPSY: [facility] - Focal epithelial hyperplas ia, squamous metaplasia and atypia, favor reactive. CENTER - Mild chronic inflammation. See comment. LABORATORY SERVICES Diagnosis Comment This case was presented and reviewed at the intradepartmental consultation conference for interpretation of epithelial features. [facility] Immunohistochemical study wa s performed to evaluate IgG4-associated lesion, since the tissue shows plasmacytic infiltrate, and the immunoreactivity profile does not support IgG4-related process. CENTER IMMUNOHISTOCHEMISTRY: LABORATORY ANTIBODY(CLONE)(BLOCK):RESULT SERVICES IgG (RWP49, [facility])(A1): positive in plasma cells IgG4 (CD5042, [facility]) (A1): negative NOTE: One or more of the re agents used in immunoperoxidase testing in this case may not have been cleared or approved by the U.S. Food and Drug Administration (FDA). The FDA has determined that such cl earance or approval is not n ecessary. These tests are used for clinical purposes. They should not be regarded as investigational or for research. These reagents' performance characteristics have been de termined by [facility] and/or by the referring laboratory. The positive and negative controls worked appropriately. If immunoperoxidase staining has been performed on alcoh ol fixed cytology specimens, which has not been fully validated, the assays should be interpreted with caution and correlated with clinical data. This laboratory is certified under the Clinical Laborato ry Improvement Amendments of 1988 (CLIA-88) as qualified to perform high complexity clinical laboratory testing. Attestation There was significant [facility] Electr onically resident/fellow CENTER signed by Kwame hawley involvement in the LABORATORY MD [place] on diagnostic evaluation of SERVICES 05/19 at 1641 this case. By the signature below, the attending physician certifies that they have personally conducted a gross and/or microscopic examination of the described specimens and rendered or confirmed the above diagnosis. Clinical History Conjunctivochalasis; clinical diagnosis code: H 11.823 [facility]OR[facility]ORY SERVICES Gross Description A. [facility] Received in normal saline la belled with proper patient identification (initials B, S) and right is an elongated portion of briggs translucent membranous tissue (1.5 x 0.2 x 0.2 cm). The specimen is submitted intact in A1. CENTER LABORATORY JUAQUIN HU(ASCP) 06/03/2020 15:32 SER VICES Resident/Fellow: Joya Oliveira DO [facility] LABORATORY SERVICES Performing Lab [facility]ORAT[facility] SERVICES Scanned Images [facility]OR[facility] SERVICES Specimen Tissue - Entire conjunctiva of both eyes (body structure) Performing Organization Address City/State/ZIP Code Phon e Number [facility] [address] [place] [address] SERVICES documented in this encounter Visit Diagnoses Diagnosis 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
--- OUTSIDE RECORDS SUMMARY | 2021-12-04 02:05 | XMS_ITS | Encounter Summary ---
:1940 Author Organization [facility] Address [address] [place] [address] Care Team Providers Name Role Phone Taylor Hazel MD Primary Care Provider [phone] Reason for Visit Reason Onset Date Comments Medical Records 03/19/2020 Encounter Details Date Type Department Care Team Description 03/19/2020 Telephone [facility] Selma Kulkarni MD Medical Records Ophthalmology - [address], [address], [address] [place] [address] [place] [phone] (Wo rk) Social History Tobacco Use Types Packs/Day Years Used Date Never Assessed Sex Assigned at Date Recorded Not on file COVID-19 Exposure Response Date Recorded In the last month, have you been in contact with No / Unsure 02/29/2020 10:54 EST someone who was confirmed or suspected to have Coronavirus / COVID-19? documented as of this encounter Miscellaneous Notes Telephone Encounter - Norberto Hay - 03/25/2020 0836 EST Patients last notes were faxed elephone Encounter - Marielena Higgins - 03/19/2020 0806 EST Patient is being seen on 03/26/[address] Yannick Benitez and he would like a copy of Dr. Kulkarni's note from his recent visit. Once the note is signed, please fax it to Dr. Benitez. [id number] signed by Marielena Higgins at 03/19/2020 8:08 EST documented in this encounter Plan of Treatment Not on filedocumented as of this encounter Visit Diagnoses Not on filedocumented in this encounter Care Teams Certified Indoor Environmentalist Relationship Specialty Start Date End Date Taylor Hazel MD PCP - General 02/19/[address],[place] [address] documented as of this encounter
--- OUTSIDE RECORDS SUMMARY | 2021-12-04 02:05 | XMS_ITS | Encounter Summary ---
:1940 Author Organization [facility] Address [address] [place] [address] Care Team Providers Name Role Phone Taylor Hazel MD Primary Care Provider [phone] Reason for Visit Reason Comments Eye Problem Encounter Details Date Type Department Care Team Description 02/29/2020 Office Visit [facility] Selma Kulkarni MD Ophthalmology - [address], [address], [address] [place] [address] [place], [place] [phone] (Wo rk) Social History Tobacco Use Types Packs/Day Years Used Date Never Assessed Sex Assigned at Date Recorded Not on file COVID-19 Exposure Response Date Recorded In the last month, have you been in contact with No / Unsure 02/29/2020 10:54 EST someone who was confirmed or suspected to have Coronavirus / COVID-19? documented as of this encounter Progress Notes Leonila Kulkarni MD - 02/29/2020 0967 EST Chief Complaint Patient presents with ??? Eye Problem Comments Here for the first time at the request of Yannick Benitez for evaluation of ectropion Right lower eyelid. Patient states both eyes are bothersome due to pretty constant tearing with some overflow tearing that gets worse when he goes outside or it is windy. No discharge. No crusting. Occasional sharp painsin the mornings both eyes. Occasional redness both eyes. No flashes. No floaters. No current use of eye drops. Patient states he has tried a lot of different drops and an oral medication (unsure of thename) the first time it helped his eyes, the second time it did not. Hx of lasik both eyes and cataract surgery both eyes. No previous eye or facial injuries. HPI The patient is a 79 y.o. male here at the request of Dr. Benitez for evaluation of Ectropion. Pt notespersistent overflow tearing for years. He had taken 2 courses of oral steroid and it helps for a time and then symptoms return. H/o LASIK and CE with PCIOL. No h/o eye trauma. Pt reports some slanting of letters. This is not new, has noted this and is followed with dilated exams. No known problems with Thyroid function. No weight loss, no heart racing. No pain or pressure ROS Constitutional: ENT/Mouth Hearing Loss Cardiovascular: NL Respiratory: NL Gastrointestinal: NL Genitourinary: NL Musculoskeletal: Integumentary: Neurologic: NL Psychiatric: Endocrine: NL Hematologic: NL Immunologic: NL Unix Engineer: Exposures: Other: Attestation: Allergies include: Patient has no known allergies. There is no problem list on file for this patient. Outpatient Medications Marked as Taking for the 02/29/20 encounter (Office Visit) with Leonila Kulkarni MD Medication Sig ??? docosahexaenoic acid/epa (FISH OIL ORAL) Take by mouth daily. ??? IBUPROFEN ORAL Take by mouth daily. ??? MULTIVITAMIN ORAL Take by mouth daily. ??? sertraline (ZOLOFT) 50 mg tablet Take 50 mg by mouth daily. Base Eye Exam Visual Acuity (Snellen - Linear) Right Left Dist cc 20/25 20/30 +1 Dist ph cc NI Tonometry (Applanation, 9:57) Right Left Pressure 16 12 Pupils Dark Light Shape React APD Right 4 3 Round Brisk None Left 4.5 3.5 Round Brisk None Visual Fuentes Right Left Full Full Extraocular Movement Right Left Full Full Neuro/Psych Oriented x3: Yes Mood/Affect: Normal Additional Tests Amsler Right Left lines look like they bend to left eye lines look like they bend to the right Color Right Left Ishihara 03/03 Slit Lamp and Fundus Exam External Exam Right Left External Normal Normal Oculus Exophthalmometry (Base: 114 mm) Right Left 18 mm 17 mm Slit Lamp Exam Right Left Lids/Lashes lid [...] 0.2 0.2 Macula ERM ERM DIAGNOSTIC TESTS: OCT, Retina - OU - Both Eyes OCT macula: Indication: Right eye: ERM, central subfield thickness 375 microns. Epiretinal membrane. No subretinal or intraretinal fluid. Left eye: ERM, central subfield thickness 382 microns. Epiretinal membrane. No subretinal or intraretinal fluid IMPRESSION & PLAN: Encounter Diagnoses Name Primary? Bilateral epiphora Yes ??? Lid retraction of right eye ??? Epiretinal membrane (ERM) of both eyes 1. 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 Will check thyroid panel. There is a component of LL laxtiy, which may be contributing as well. As well as MGD. If TFTs are wnl, then will plan to try a taper of mildtopical steroids with monitoring of IOP. - THYROID-STIMULATING IMMUNOGLOBULIN (TSI), SERUM; Future - T4 FREE; Future - TSH; Future - THYROTROPIN RECEPTOR ANTIBODY; Future 2. Lid retraction of right eye As above - THYROID-STIMULATING IMMUNOGLOBULIN (TSI), SERUM; Future - T4 FREE; Future - TSH; Future - THYROTROPIN RECEPTOR ANTIBODY; Future 3. Epiretinal membrane (ERM) of both eyes Discussed meaning of this diagnosis. Not visually significant. Observe. - OCT, RETINA - OU - BOTH EYES I have reviewed the patient's past medical, family, social and surgical history. I have also reviewed the patient's medications, allergies, and problem list. I performed my own HPI and have reviewed the tech's ROS as well. I personally completed this exam myself. Leonila Kulkarni MD I am scribing for Leonila Kulkarni MD, while she is personally performing the service. ARLINE Calvo, 02/29/2020 10:40 The patient was instructed to call our office or go to emergency room if worse vision, worse symptoms, or new/other concerns arise. documented in this encounter Plan of Treatment Not on filedocumented as of this encounter Procedures Procedure Name Priority Date/Time Associated Diagnosis Comme nts OCT, RETINA - OU - Routine 02/29/2020 10:39 Epiretinal membran e Results for this BOTH EYES EST (ERM) of both eyes procedure are in the results section. documented in this encounter Results T3 FREE (02/29/2020 11:00 EST) Pathologist Sig nature T3, Free 3.4 2.8 - 5.3 pg/mL [facility] Specimen Blood - Venous blood (substance) Performing Organization Address City/[facility] Code Phon e Number [facility] [address] [place] [address] SERVICES THYROTROPIN RECEPTOR ANTIBODY (02/29/2020 11:00 EST) Thyrotropin <1.10 0.00 - 1.75 [facility] Receptor Ab, S Comment: IU/L LABORATORIES ADDITIONAL INFORMATION ------ At a decision limit of 1.75 IU/L, this assay has 97% sensitivity and 99% specificity for detection of Graves' disease. In healthy individuals and in patients with thyroid disease without diagnosis of Graves' disease, the upper limit of anti-TSHR values are 1.22 IU/L and 1.58 IU/L, respectively (97.5th percentiles). Test Performed by: [facility] [address] [place] [address] Logistics Assistant: Olu Tran M.D. Ph.D.; CLIA# [id number] Specimen Blood - Venous blood (substance) Performing Organization Address City/[facility] Phon e Number [facility] [address] [place] [address] TSH (02/29/2020 11:00 EST) Pathologist Sig nature TSH 4.16 0.47 - 4.68 uIU/mL [facility] Specimen Blood - Venous blood (substance) Narrative [facility] - 02/29/2020 12:48 EST The results of this assay can be falsely lowered due to the consumption of Biotin. Performing Organization Address [facility]/ZIP Code Phon e Number [facility] [address] [place] [address] SERVICES T4 FREE (02/29/2020 11:00 EST) Pathologist Sig nature T4, Free 0.9 0.8 - 2.2 ng/dL [facility] Specimen Blood - Venous blood (substance) Performing Organization Address [facility] Phon e Number [facility] [address] [place] [address] SERVICES THYROID-STIMULATING IMMUNOGLOBULIN (TSI), SERUM (02/29/2020 11:00 EST) Thyroid-Stimulati <1.0 <=1.3 TSI [facility] ng Immunoglobin, Comment: index LABORATORIES S Test Performed by: [facility] - [address] [address] Logistics Assistant: Olu Tran M.D. Ph.D.; CLIA# [id number] Specimen Blood - Venous blood (substance) Performing Organization Address [facility] Phon e Number [facility] [address] [place] [address] OCT, RETINA - OU - BOTH EYES (02/29/2020 10:39 EST) Specimen Narrative [facility] POINT OF CARE - 02/29/2020 10:[address] OCT macula: Indication: Right eye: ERM, central subfield thickne ss 375 microns. Epiretinal membrane. No subretinal or intraretinal fluid. Left eye: ERM, central subfield thickness 382 microns. Epiretin al membrane. No subretinal or intraretinal fluid Performing Organization Address [facility] Phon e Number [facility] POINT OF CARE documented in this encounter Visit Diagnoses Diagnosis Bilateral epiphora - Primary Epiphora, unspecified as to cause Lid retraction of right eye Epiretinal membrane (ERM) of both eyes documented in this encounter Historical Medications This list may reflect changes made after this encounter. Medication Sig Dispensed Refills Start Date End Date IBUPROFEN ORAL Take by mouth 0 daily. MULTIVITAMIN ORAL Take by mouth 0 daily. docosahexaenoic acid/epa Take by mouth 0 (FISH OIL ORAL) daily. sertraline (ZOLOFT) 50 mg Take 50 mg by 0 tablet mouth daily. added in this encounter Eye Exam Visual Acuity (Snellen - Linear) Right eye Left eye Dist cc 20/25 20/30 +1 Dist ph cc NI Tonometry (Applanation, 9:57) Right eye Left eye Pressure 16 12 Pupils Dark Light Shape React APD Right eye 4 3 Round Brisk None Left eye 4.5 3.5 Round Brisk None Visual Fuentes Right eye Left eye Full Full Extraocular Movement Right eye Left eye Full Full Neuro/Psych Oriented x3: Yes Mood/Affect: Normal Amsler Right eye Left eye lines look like they bend to left eye li arley look like they bend to the right Color Right eye Left eye Ishihara 03/03 External Exam Right eye Left eye External [...] C/D Ratio 0.2 0.2 Macula ERM ERM Exophthalmometry (Base: 114 mm) Right eye Left eye 18 mm 17 mm External Oculus Care Teams Estate Planning Attorney Relationship Specialty Start Date End Date Taylor Hazel MD PCP - General 02/19/[address] [address] documented as of this encounter
[2021-12-04] MEDS: Albuterol HFA 18 GM 200 PUFF INH IH (15:51)
[2021-12-04] MEDS: Inhaler, Assist Device 1 EACH MC (15:52)
--- NOTE | 2021-12-11 16:23 | W.PFT ---
Date of service: 12/04/21 Time of Service: 14:45 Pulmonary Function Test Result Requesting Provider Taylor aHzel Indications: Chronic cough Interpretation Spirometry: There is no airflow limitation. There is no significant bronchodilator response. Lung Volumes: Normal lung volumes Diffusion Capacity: Normal diffusion Airway Pressure: Normal airways resistance Impression Normal pulmonary function testing Clinical Correlation therefore is recommended.
== END 2021-12-04 02:00 | disposition home or self-care (01) ==
LOC: RT 02:00
PROVIDERS: Visit Provider Family Medicine
DX: R05.3 Chronic cough (principal)
CPT/HCPCS: 94060; 94726; 94729

== ENCOUNTER 2024-09-04 10:23 | Outpatient (CLI) | payer MEDICARE, SELFPAY ==
[2024-09-04 10:20] LABS: Abs Immature Grans 0.03 10^3/uL (0.0-0.06); Absolute Basophil Count 0.04 10^3/uL (0.0-0.2); Absolute Eosinophil Count 0.21 10^3/uL (0.0-0.7); Absolute Lymphocyte Count 1.33 10^3/uL (1.2-3.4); Absolute Monocyte Count 0.68 10^3/uL (0.1-0.8); Absolute Neutrophil Count 4.02 10^3/uL (1.2-6.7); Basophils % 0.6 %; Eosinophils % 3.3 %; HCT 42.4 % (40.0-50.0); Immature Grans % 0.5 %; Lymphocytes % 21.1 %; MCH 32.2 pg (27.0-33.0); MCV 98 fL (80-95); Monocytes % 10.8 %; Neutrophils % 63.7 %; Platelet Count 261 10^3/uL (130-400); RBC 4.35 10^6/uL (4.36-5.78); RDW 14.2 % (11.8-14.1); RDW-SD 51.6 fL; WBC 6.31 10^3/uL (4.4-10.8)
[2024-09-04 10:40] LABS: ALT 57 U/L (16-63); AST 29 U/L (15-37); Albumin 3.5 g/dL (3.4-5.0); Alkaline Phosphatase 89 U/L (46-116); Anion Gap 6.6 mmol/L (3-11); BUN 30 mg/dL (7-18); Bilirubin, Total 0.3 mg/dL (0.2-1.0); CO2 28.4 mmol/L (21.0-32.0); CREATININE 1.1 mg/dL (0.70-1.30); Calcium 8.8 mg/dL (8.5-10.1); Chloride 107 mmol/L (98-107); Estimated GFR 66.19 (mL/min/1.73m2); Glucose 102 mg/dL (74-106); Potassium 4.4 mmol/L (3.5-5.1); Sodium 142 mmol/L (136-145); Total Protein 7.5 g/dL (6.4-8.2)
[2024-09-04 18:54] LABS: CEA 1.9 ng/mL (See Note)
== END 2024-09-04 10:24 | disposition home or self-care (01) ==
LOC: LBO 10:23
PROVIDERS: Visit Provider Internal Medicine Hematology & Oncology
DX: C18.2 Malignant neoplasm of ascending colon (principal)
CPT/HCPCS: 36415; 80053; 82378; 85025